=== PATIENT | female | born 1990 | race Two or more races ===

== ENCOUNTER 2019-05-16 13:22 | Emergency (ER) | payer MEDICAID ==
[~2019-05-16] VITALS: Ht 147.3 cm; Wt 52.0 kg
[2019-05-16] MEDS ORDERED: HYDR-4383 PO (14:44)
[2019-05-16] MEDS ORDERED: HYDR-3965 PO (15:03)
[2019-05-16 15:07] VITALS: BP 113/69
== END 2019-05-16 15:09 | disposition home or self-care (01) ==
LOC: ER 13:23
DX: M25.571 Pain in right ankle and joints of right foot (principal); Z79.899 Other long term (current) drug therapy
CPT/HCPCS: 99283

== ENCOUNTER 2019-05-19 09:11 | Emergency (ER) | payer MEDICAID ==
[~2019-05-19] VITALS: Ht 147.3 cm; Wt 51.0 kg
[~2019-05-19 09:11] MED LIST: HYDR-3965 PO; HYDR-4383 PO
[2019-05-19 09:29] VITALS: BP 113/75
== END 2019-05-19 10:47 | disposition home or self-care (01) ==
LOC: ER 09:11
DX: M25.571 Pain in right ankle and joints of right foot (principal); Z79.899 Other long term (current) drug therapy; V89.2XXD Person injured in unspecified motor-vehicle accident, traffic, subsequent encounter
CPT/HCPCS: 99281; 99282

== ENCOUNTER 2019-05-22 15:47 | Outpatient (CLI) | payer MEDICAID ==
[2019-05-27] MEDS ORDERED: IBUP-1984 PO (10:20)
== END 2019-05-22 18:00 | disposition home or self-care (01) ==
LOC: ORTHO 15:47
PROVIDERS: ATTEND Orthopaedic Surgery
DX: S82.54XD Nondisplaced fracture of medial malleolus of right tibia, subsequent encounter for closed fracture with routine healing (principal); M25.571 Pain in right ankle and joints of right foot; X58.XXXD Exposure to other specified factors, subsequent encounter
CPT/HCPCS: 73610; G0463

== ENCOUNTER 2019-05-28 14:17 | Day surgery (SDC) | payer MEDICAID, OTHER ==
[2019-05-27 10:52] LABS: BASOPHILS % (AUTO) 0.4 % (0-1); EOSINOPHILS # (AUTO) 0.3 X10'3 (0-0.9); EOSINOPHILS % (AUTO) 5.3 % (0-6); LYMPHOCYTES # (AUTO) 1.8 X10'3 (1.1-4.8); LYMPHOCYTES % (AUTO) 27.8 % (21-51); MEAN CORPUSCULAR HEMOGLOBIN 32.7 PG (27.0-31.0); MEAN CORPUSCULAR HGB CONC 34.5 g/dL (33.0-36.5); MEAN CORPUSCULAR VOLUME 94.8 FL (78-98); MEAN PLATELET VOLUME 8.3 FL (7.4-10.4); MONOCYTES # (AUTO) 0.4 X10'3 (0-0.9); MONOCYTES % (AUTO) 5.9 % (2-12); NEUTROPHILS # (AUTO) 3.9 X10'3 (1.8-7.7); NEUTROPHILS % (AUTO) 60.6 % (42-75); PRE OP HEMATOCRIT 38.4 % (35.0-45.0); PRE OP HEMOGLOBIN 13.2 g/dL (12.0-16.0); PRE OP PLATELET COUNT 361 X10'3 (140-440); RED BLOOD COUNT 4.05 X10'6 (4.20-5.60); RED CELL DISTRIBUTION WIDTH 13.2 % (11.5-14.5)
[2019-05-27 11:06] LABS: ALBUMIN 4.2 G/DL (3.4-5.0); ALBUMIN/GLOBULIN RATIO 1.1 (1.1-1.5); ALKALINE PHOSPHATASE 130 IU/L (46-116); BLOOD UREA NITROGEN 15 MG/DL (7-18); BUN/CREATININE RATIO 22.7 (6.6-38.0); CALCIUM 9.1 MG/DL (8.5-10.1); CHLORIDE 103 MMOL/L (99-107); CREATININE 0.66 MG/DL (0.40-0.90); PRE OP ALT 16 U/L (30-65); PRE OP AST 15 U/L (10-37); PRE OP BILIRUB, TOTAL 0.6 MG/DL (0.0-1.0); PRE OP GLUCOSE 86 MG/DL (70-104); PRE OP POTASSIUM 3.6 MMOL/L (3.4-5.1); TOTAL CARBON DIOXIDE 28.8 MMOL/L (24-32); TOTAL PROTEIN 8.2 G/DL (6.4-8.2); eGFR > 90 ML/MIN
[2019-05-27 11:08] LABS: PRE OP ANION GAP 7 (8-16); PRE OP SODIUM 139 MMOL/L (135-145)
[~2019-05-28] VITALS: Ht 147.3 cm; Wt 53.7 kg
[2019-05-28] VITALS (13 sets, daily range): BP systolic 92–128; BP diastolic 58–89
[~2019-05-28 14:17] MED LIST changes: -HYDR-4383 PO; +IBUP-1984 PO
[2019-05-28] MEDS ORDERED: ringers solution, lacted 1,000 ML IV SCH ×2 (15:00→18:50)
[2019-05-28] MEDS ORDERED: ceFAZolin 2gm in dextrose, iso 100 ML IV ONE (15:00)
[2019-05-28] MEDS ORDERED: famotidine 20mg tablet PO ONE (15:00)
[2019-05-28] MEDS ORDERED: sevoflurane 250ml liquid IH ONE (18:10)
[2019-05-28] MEDS ORDERED: MIDAZolam 5mg/5ml vial ONE (18:12)
[2019-05-28] MEDS ORDERED: fentaNYL/PF 50MCG/1 ML 2ML syringe ONE (18:12)
[2019-05-28] MEDS ORDERED: ceFAZolin 1000mg inj ONE (18:45)
[2019-05-28] MEDS ORDERED: morphine 4 MG/ML inj SYRINge IV PRN ×2 (18:50)
[2019-05-28] MEDS ORDERED: meperidine/PF 25mg/ml syringe IV PRN ×3 (18:50)
[2019-05-28] MEDS ORDERED: ondansetron/PF 4mg/2ml inj IV PRN (18:50)
[2019-05-28] MEDS ORDERED: proCHLORperazine 10 MG/2 ml inj IV PRN (18:50)
[2019-05-28] MEDS ORDERED: dexamethasone sod phosphate 4mg/ml inj. ONE (19:10)
[2019-05-28] MEDS ORDERED: LIDOcaine 1%/PF 5ML 10 MG/ML VIAL ONE (19:10)
[2019-05-28] MEDS ORDERED: ROPIVAcaine 0.5% (5mg/ml) 30ml vial ONE (19:10)
[2019-05-28] MEDS ORDERED: ondansetron/PF 4mg/2ml inj ONE (19:10)
[2019-05-28] MEDS ORDERED: propofol inj 20 ML IV ONE (19:10)
--- NOTE | 2019-05-28 19:25 | NUR ---
Received from OR via [facility], accompanied by Anesthesiologist DR SCHNEIDER and report given by Anesthesiologist. PT DROWSY, NO S/S OF DISTRESS/DISCOMFORT, VSS. 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 Addendum: 05/28/19 at 194 by Rula Hamm RN Amended: Links added.
--- NOTE | 2019-05-28 21:25 | NUR ---
D/C INSTRUCTIONS GIVEN AND GONE OVER W/PT AND HER FRIENDS WHOM VERBALIZE UNDERSTANDING, PT D/CD TO HOME VIA W/C TO PRIVATE VEHICLE W/O INCIDENT. Addendum: 05/28/19 at 2140 by Rula Hamm RN Amended: Links added.
== END 2019-05-28 21:25 | disposition home or self-care (01) ==
LOC: PAS 14:17
PROVIDERS: ATTEND Orthopaedic Surgery
DX: S82.51XA Displaced fracture of medial malleolus of right tibia, initial encounter for closed fracture (principal); G89.18 Other acute postprocedural pain; J45.909 Unspecified asthma, uncomplicated; Z79.899 Other long term (current) drug therapy; Z98.890 Other specified postprocedural states; X58.XXXA Exposure to other specified factors, initial encounter; Y93.89 Activity, other specified; Y92.89 Other specified places as the place of occurrence of the external cause; Y99.8 Other external cause status
CPT/HCPCS: 27766; 36415; 64450; 80053; 82948; 85025; C1713; J0690; J1100; J2175; J2250; J2405; J2704; J3010; J7120; A4215; A4618; A6449; A7000; J2795

== ENCOUNTER 2019-06-05 15:56 | Outpatient (CLI) | payer MEDICAID, OTHER | END 2019-06-05 18:00 | disposition home or self-care (01) | LOC: ORTHO 15:56 | PROVIDERS: ATTEND Orthopaedic Surgery | DX: S82.51XA Displaced fracture of medial malleolus of right tibia, initial encounter for closed fracture (principal); X58.XXXA Exposure to other specified factors, initial encounter; Y93.89 Activity, other specified; Y92.89 Other specified places as the place of occurrence of the external cause; Y99.8 Other external cause status | CPT/HCPCS: G0463 ==

== ENCOUNTER 2019-07-01 15:07 | Outpatient (CLI) | payer MEDICAID | END 2019-07-01 16:30 | disposition home or self-care (01) | LOC: ORTHO 15:07 | PROVIDERS: ATTEND Orthopaedic Surgery | DX: S82.51XA Displaced fracture of medial malleolus of right tibia, initial encounter for closed fracture (principal); X58.XXXA Exposure to other specified factors, initial encounter; Y93.89 Activity, other specified; Y92.89 Other specified places as the place of occurrence of the external cause; Y99.8 Other external cause status | CPT/HCPCS: 73600; G0463; L1906 ==